=== PATIENT | female | born 1940 | race Caucasian/White ===

== ENCOUNTER 2021-10-12 21:55 | Inpatient (IN) | payer OTHER ==
[~2021-10-12] VITALS: Ht 162.6 cm; Wt 75.3 kg
--- NOTE | 2021-10-13 00:30 | NUR ---
ADMISSION NOTES PT ARRIVED AT APPROXIMATELY MIDNIGHT ACCOMPANIED BY 2 kennel hand. AOx2. ON 2 LPM VIA NC AND TOLERATING WELL. NO SOB NOTED. NO S/SX OF RESPIRATORY DISTRESS NOTED. TELE MONITOR DETECTS RHYTHM. IV ACCESS IN PJ #20G. SAFETY PRECAUTIONS IN PLACE: BED IN LOWEST, LOCKED POSITION, SIDERAILS UPx2, AND BRAKES ON. TABLE AND CALL LIGHT WITHIN REACH. WILL CONTINUE TO MONITOR. Addendum: 10/13/21 at 0539 by ANANTH SEVILLA RN TELE MONITOR DETECTS SR WITH BBB AND RATE OF 98.
[2021-10-13 01:45] LABS: ABG BASE EXCESS 1.7 mmol/L; ABG OXYGEN SATURATION 96.6 % (92.0-98.5); ABG PCO2 45.7 mmHg (35.0-45.0); ABG PH 7.392 (7.350-7.450); ABG PO2 87.7 mmHg (75.0-100.0); COHb 1.6 % (0.5-1.5); MetHb 0.3 % (0.0-1.5); O2Hb 94.8 % (94.0-97.0); SITE, ABG Right Radial; VENT MODE, BG Nasal Cannula
[2021-10-13] MEDS ORDERED: ACETAMINOPHEN 650 MG/20.3 ML UDC PO PRN (02:00)
[2021-10-13] MEDS ORDERED: TRAMADOL HCL 50 MG TABLET PO PRN (02:00)
[2021-10-13] MEDS ORDERED: busPIRone 5 MG TABLET PO PRN (02:00)
[2021-10-13] MEDS ORDERED: GABAPENTIN 100 MG CAPSULE PO PRN (02:00)
[2021-10-13] MEDS ORDERED: MAGNESIUM HYDROXIDE 30 ML UDC PO PRN (02:00)
[2021-10-13] MEDS ORDERED: INSULIN REGULAR, HUMAN 100 UNIT/ML 3 ML VIAL SQ PRN (02:30)
[2021-10-13] MEDS ORDERED: ONDANSETRON HCL/PF 4 MG/2 ML VIAL IVP PRN (02:30)
[2021-10-13] MEDS: ENOXAPARIN SODIUM 40 MG/0.4 ML DISP.SYRIN SQ SCH ×2 (02:30→20:27)
[2021-10-13] MEDS ORDERED: DEXTROSE 50%-WATER 50 ML DISP.SYRIN IV PRN ×2 (02:30→11:00)
[2021-10-13] MEDS ORDERED: *INSULIN REGULAR(HUMULIN R)HUM 100 UNIT/ML VIAL SQ PRN (02:30)
[2021-10-13] MEDS ORDERED: Z GUARD REMEDY 4 OZ OINT TP PRN (02:30)
[2021-10-13] MEDS ORDERED: ACETAMINOPHEN 325 MG TABLET PO PRN (02:30)
--- NOTE | 2021-10-13 02:40 | NUR ---
RN NOTES ACCIDENTALLY DOCUMENTED MEDICATIONS UNDER ORDERS. CONTACTED [facility] SO THE ORDERS WOULD NOT BE VERIFIED. CLARIFIED AND TAKEN CARE CARE OF.
[2021-10-13 04:00] VITALS: BP 130/72
[2021-10-13] MEDS ORDERED: methylPREDNISolone SOD SUCC 125 MG/2ML VIAL IV SCH (05:00)
[2021-10-13] MEDS: BLOOD SUGAR DIAGNOSTIC 1 EACH STRIP IN SCH ×7 (06:43→22:00)
--- NOTE | 2021-10-13 06:56 | NUR ---
RN CLOSING NOTES PT IN BED, AWAKE. AOx2. ON 2 LPM VIA NC AND TOLERATING WELL. NO SOB NOTED. NO S/SX OF RESPIRATORY DISTRESS NOTED. TELE MONITOR DETECTS SINUS RHYTHM/ SINUS TACHYCARDIA WITH BBB AND RATE OF 90-100. IV ACCESS IN PJ #20G. ALL ORDERS CARRIED OUT. ALL NEEDS MET. PT KEPT CLEAN AND DRY. WOUND PICTURES TAKEN. SAFETY PRECAUTIONS IN PLACE: BED IN LOWEST, LOCKED POSITION, SIDERAILS UPx2, AND BRAKES ON. TABLE AND CALL LIGHT WITHIN REACH. WILL ENDORSE TO ONCOMING SHIFT FOR RENE.
[2021-10-13 06:57] LABS: CALCIUM, SERUM 9.3 mg/dL (8.5-10.1); CARBON DIOXIDE 32 mmol/L (21-32); CHLORIDE 103 mmol/L (98-107); CREATININE 0.6 mg/dL (0.6-1.3); GLUCOSE 143 mg/dL (74-106); MAGNESIUM 1.7 mg/dL (1.8-2.4); PHOSPHORUS 4.1 mg/dL (2.5-4.9); POTASSIUM 3.9 mmol/L (3.5-5.1); SODIUM SERUM 143 mmol/L (136-145); UREA NITROGEN, BLOOD 10 mg/dL (7-18)
--- NOTE | 2021-10-13 07:10 | NUR ---
MARINE STEAM FITTER HELPER OPENING NOTES PT IN BED, AWAKE. AOx2. ON 2 LPM VIA NC AND TOLERATING WELL. NO SOB NOTED. NO S/SX OF RESPIRATORY DISTRESS NOTED. NO S/S OF CARDIAC DISTRESS. IV ACCESS IN PJ #20G SL INTACT AND PATENT, NO S/S OF INFILTRATION. PATIENT HAS R SIDED WEAKNESS. SKIN: SCRATCHES ON L KNEE AND ABDOMEN, L ELBOW BRUISE, AND SACRAL REDNESS. TELE MONITOR DETECTS SINUS RHYTHM WITH BBB AND RATE OF 96. SAFETY PRECAUTIONS IN PLACE: BED IN LOWEST, LOCKED POSITION, SIDERAILS UPx2, AND BRAKES ON. TABLE AND CALL LIGHT WITHIN REACH.
[2021-10-13 07:18] LABS: ALANINE AMINOTRANSFERASE 45 U/L (12-78); ALBUMIN 2.2 g/dL (3.4-5.0); ALKALINE PHOSPHATASE 547 U/L (46-116); ASPARTATE AMINOTRANSFERASE 41 U/L (15-37); BILIRUBIN,TOTAL 3.1 mg/dL (0.2-1.0); TOTAL PROTEIN, SERUM 7.3 g/dL (6.4-8.2)
--- NOTE | 2021-10-13 07:23 | NUR ---
RN NOTES RECEIVED CALL FROM LAB FOR [facility] OF [address] MELENDEZ NOTIFIED AND ACKNOWLEDGED NO NEW ORDERS AT THIS TIME.
[2021-10-13 07:28] LABS: CHOLESTEROL 176 mg/dL (<200); HDL CHOLESTEROL 26 mg/dL (40-60); LDL 109 mg/dL (0-99); THYROID STIMULATING HORMONE 0.249 uIU/mL (0.358-3.74); TRIGLYCERIDES 171 mg/dL (30-150)
[2021-10-13] MEDS ORDERED: LIOTHYRONINE SODIUM (5 MCG/TA 5 MCG TABLET PO SCH (07:30)
[2021-10-13] MEDS ORDERED: LEVOTHYROXINE SODIUM 175 MCG TABLET PO SCH (07:30)
[2021-10-13] MEDS ORDERED: OMEPRAZOLE 20 MG CAPSULE.DR PO SCH (07:30)
[2021-10-13] MEDS: IPRATROPIUM NEB FS 0.5 MG/2.5 ML AMPUL.NEB NEB SCH ×4 (07:35→19:30)
[2021-10-13] MEDS ORDERED: ALBUTEROL FS 2.5 MG/3 ML VIAL.NEB NEB SCH (07:35)
[2021-10-13 07:41] LABS: BASOPHILS % (AUTO) 0.3 % (0.0-2.0); EOSINOPHILS % (AUTO) 0.8 % (0.0-6.0); HEMATOCRIT 43 % (33-45); HEMOGLOBIN 14.3 g/dL (11.5-14.8); LYMPHOCYTES # (AUTO) 1.7 K/uL (0.8-4.8); LYMPHOCYTES % (AUTO) 28.1 % (20.0-44.0); MEAN CORPUSCULAR HGB CONC 33 g/dl (31.0-36.0); MEAN CORPUSCULAR VOLUME 90 fL (82-100); MONOCYTES # (AUTO) 0.4 K/uL (0.1-1.30); MONOCYTES % (AUTO) 7.6 % (2.0-12.0); NEUTROPHILS # (AUTO) 3.7 K/uL (1.8-8.9); NEUTROPHILS % (AUTO) 63.2 % (43.0-81.0); PLATELET COUNT (AUTO) 184 K/uL (150-450); RED BLOOD CELL COUNT(AUTO) 4.79 MIL/uL (4.0-5.2); WHITE BLOOD COUNT (AUTO) 5.9 K/uL (4.3-11.0)
[2021-10-13] MEDS: PANTOPRAZOLE 40 MG TABLET.DR PO SCH (07:52)
[2021-10-13] MEDS ORDERED: LEVO137T24 PO (07:55)
[2021-10-13] MEDS ORDERED: MAGN400O6 PO (07:55)
[2021-10-13] MEDS ORDERED: QUET25TA PO (07:55)
[2021-10-13] MEDS ORDERED: LOSA50TA39 PO (07:55)
[2021-10-13] MEDS ORDERED: POTA10CA43 PO (07:55)
[2021-10-13] MEDS ORDERED: PARO10TA86 PO (07:55)
[2021-10-13] MEDS ORDERED: MULT-447 PO (07:55)
[2021-10-13] MEDS ORDERED: DOCU-141 PO (07:55)
[2021-10-13] MEDS ORDERED: TRAM50TA2 PO (07:55)
[2021-10-13] MEDS ORDERED: ATOR20TA PO (07:55)
[2021-10-13] MEDS ORDERED: PROP15DR OP (07:55)
[2021-10-13] MEDS ORDERED: BACL10TA PO (07:55)
[2021-10-13] MEDS ORDERED: BUSP10TA3 PO (07:55)
[2021-10-13] MEDS ORDERED: CALC-494 PO (07:55)
[2021-10-13] MEDS ORDERED: LACT30003 PO (07:55)
[2021-10-13] MEDS ORDERED: LIOT5TAB7 PO (07:55)
[2021-10-13] MEDS ORDERED: GABA-532 PO (07:55)
[2021-10-13] MEDS ORDERED: CHOL400T11 PO (07:55)
[2021-10-13] MEDS ORDERED: OMEP20CA15 PO (07:55)
[2021-10-13] MEDS ORDERED: PSYL0.4C2 PO (07:55)
[2021-10-13] MEDS ORDERED: METO50TA16 PO (07:55)
[2021-10-13] MEDS ORDERED: ACET325T53 PO (07:55)
[2021-10-13 08:00] VITALS: BP 155/75
[2021-10-13] MEDS: ASPIRIN 81 MG TAB.CHEW PO SCH (08:44)
[2021-10-13] MEDS ORDERED: ASPIRIN EC 81 MG TABLET.DR PO SCH (09:00)
[2021-10-13] MEDS ORDERED: METOPROLOL TARTRATE 50 MG TABLET PO SCH (09:00)
[2021-10-13] MEDS ORDERED: MULTIVITAMINS,THERAGRAN 1 UDTAB TABLET PO SCH (09:00)
[2021-10-13] MEDS ORDERED: POTASSIUM CHLORIDE 10 MEQ TABLET.SA PO SCH (09:00)
[2021-10-13] MEDS ORDERED: LOSARTAN POTASSIUM 50 MG TABLET PO SCH (09:00)
[2021-10-13] MEDS ORDERED: PSYLLIUM SEED 1 PKT PACKET PO SCH (09:00)
[2021-10-13] MEDS ORDERED: CALCIUM CARBONATE 500 MG TAB.CHEW PO SCH (09:00)
[2021-10-13] MEDS ORDERED: PAROXETINE HCL 20 MG TABLET PO SCH (09:00)
[2021-10-13] MEDS ORDERED: DOCUSATE SODIUM 100 MG CAPSULE PO SCH (09:00)
[2021-10-13] MEDS ORDERED: CHOLECALCIFEROL (VITAMIN D 3) 400 UNIT TABLET PO SCH (09:00)
[2021-10-13] MEDS ORDERED: Magnesium 1GM/D5W 100ML PREMIX PIGGYBACK IV ONE (11:00)
[2021-10-13] MEDS: Magnesium 1GM/D5W 100ML PREMIX 100 ML IV SCH ×2 (11:43→12:46)
[2021-10-13] MEDS: INSULIN REGULAR, HUMAN 100 UNIT/ML 3 ML VIAL SQ PRN ×3 (11:50→21:32)
[2021-10-13 12:00] VITALS: BP 123/70
[2021-10-13] MEDS: ALBUTEROL FS 2.5 MG/3 ML VIAL.NEB NEB SCH ×2 (14:53→19:30)
--- NOTE | 2021-10-13 15:41 | NUR ---
PATIENT CONTINUES TO REMOVE NASAL CANNULA, NURSE CONTINUES TO ENCOURAGES AND EDUCATE RISK AND BENEFITS OF NASAL CANNULA. WILL CONTINUE TO MONITOR.
[2021-10-13 16:00] VITALS: BP 113/60
[2021-10-13] MEDS: HYDROCORTISONE SOD SUCCINATE 100 MG/2 ML VIAL IV SCH (17:10)
--- NOTE | 2021-10-13 18:35 | NUR ---
WEB UI SOFTWARE ENGINEER CLOSING NOTES PATIENT IN BED, AWAKE. AOx2. HAS 2L OF O2 VIA NASAL CANNULA BUT PATIENT BEGAN TO REFUSE TO WEAR NC. RISK AND BENEFITS EXPLAINED, ENCOURAGED PATIENT TO WEAR. NO SOB NOTED. NO S/SX OF RESPIRATORY DISTRESS NOTED. NO S/S OF CARDIAC DISTRESS. IV ACCESS IN PJ #20G SL INTACT AND PATENT, NO S/S OF INFILTRATION. PATIENT HAS R SIDED WEAKNESS. SKIN: SCRATCHES ON L KNEE AND ABDOMEN, L ELBOW BRUISE, AND SACRAL REDNESS. TELE MONITOR DETECTS SINUS RHYTHM WITH BBB AND RATE OF 88. ALL PRESCRIBED MEDICATION ADMINISTERED. SAFETY PRECAUTIONS MAINTAINED: BED IN LOWEST, LOCKED POSITION, SIDERAILS UPx2, AND BRAKES ON. TABLE AND CALL LIGHT WITHIN REACH. WILL ENDORSE TO NEXT SHIFT ANY RENE.
--- NOTE | 2021-10-13 19:45 | NUR ---
received in bed alert ORX2 noted right sided weakness and the arm she can left but is stiff and the hand is in a tax economist fashion arm and hand swollen elevated on a pillow speech slurred but with close listening able to understand bed alarm on
[2021-10-13 20:22] VITALS: BP 150/84
[2021-10-13] MEDS ORDERED: BACLOFEN (10 MG) 10 MG TABLET PO SCH (22:00)
[2021-10-13] MEDS ORDERED: QUETIAPINE FUMARATE 25 MG TABLET PO SCH (22:00)
[2021-10-13] MEDS ORDERED: ATORVASTATIN 10 MG TABLET PO SCH (22:00)
[2021-10-14] VITALS (7 sets, daily range): BP systolic 124–162; BP diastolic 48–83
--- NOTE | 2021-10-14 04:39 | NUR ---
CLOSING NOTES: ALERT / ORIENTATED X1 THIS 12 HOURS SHE FOLLOWS SIMPLE DIRECTION SWALLOWS W/O PROBLEMS ASP PRECAUTIONS SKIN CLEAN AND CLEAR INTACT WITH ASSIST OF THE BOOK SOLICITOR TURNED AND REPOSITIONED THRU THE NIGHT INCONTINENT KEPT CLEAN BED ALARM ARM ELEVATED ON PILLOWS RIGHT ARM STIFF S/P OLD CVA CED FOOT DROP NOTED ROOM AIR SATS 97% COMFORTABLE
[2021-10-14] MEDS: BLOOD SUGAR DIAGNOSTIC 1 EACH STRIP IN SCH ×5 (06:09→21:48)
--- NOTE | 2021-10-14 07:00 | NUR ---
NETWORK SYSTEMS OPERATOR OPENING NOTES PATIENT LAYING IN BED, A/O X 1, TOLERATING WELL ON ROOM AIR WITH NO S/S RESPIRATORY DISTRESS. NO COMPLAINTS OF PAIN OR DISCOMFORT AT THIS TIME. R SL # 20 G CLEAN, INTACT, AND FLUSHING WELL. TELE MONITOR READING SR 66 WITH BBB. SAFETY MEASURES IN PLACE: BED IN LOWEST LOCKED POSITION, SIDE RAILS UP X 2, CALL LIGHT WITHIN REACH. WILL CONTINUE TO MONITOR.
[2021-10-14 07:12] LABS: BASOPHILS % (AUTO) 0.2 % (0.0-2.0); EOSINOPHILS % (AUTO) 0.1 % (0.0-6.0); HEMATOCRIT 40 % (33-45); HEMOGLOBIN 13.4 g/dL (11.5-14.8); LYMPHOCYTES # (AUTO) 1.3 K/uL (0.8-4.8); LYMPHOCYTES % (AUTO) 34.8 % (20.0-44.0); MEAN CORPUSCULAR HGB CONC 34 g/dl (31.0-36.0); MEAN CORPUSCULAR VOLUME 89 fL (82-100); MONOCYTES # (AUTO) 0.4 K/uL (0.1-1.30); MONOCYTES % (AUTO) 9.3 % (2.0-12.0); NEUTROPHILS # (AUTO) 2.1 K/uL (1.8-8.9); NEUTROPHILS % (AUTO) 55.6 % (43.0-81.0); PLATELET COUNT (AUTO) 199 K/uL (150-450); RED BLOOD CELL COUNT(AUTO) 4.48 MIL/uL (4.0-5.2); WHITE BLOOD COUNT (AUTO) 3.8 K/uL (4.3-11.0)
[2021-10-14 07:17] LABS: CREATININE 0.6 mg/dL (0.6-1.3); MAGNESIUM 2.4 mg/dL (1.8-2.4); POTASSIUM 4.4 mmol/L (3.5-5.1)
[2021-10-14] MEDS: ALBUTEROL FS 2.5 MG/3 ML VIAL.NEB NEB SCH ×4 (07:38→19:30)
[2021-10-14] MEDS: IPRATROPIUM NEB FS 0.5 MG/2.5 ML AMPUL.NEB NEB SCH ×4 (07:38→19:30)
[2021-10-14] MEDS: LEVOTHYROXINE SODIUM 100 MCG TABLET PO SCH (07:54)
[2021-10-14] MEDS: PANTOPRAZOLE 40 MG TABLET.DR PO SCH (07:55)
[2021-10-14] MEDS: ASPIRIN 81 MG TAB.CHEW PO SCH (09:03)
[2021-10-14] MEDS: HYDROCORTISONE SOD SUCCINATE 100 MG/2 ML VIAL IV SCH ×2 (09:03→10:30)
[2021-10-14] MEDS: INSULIN REGULAR, HUMAN 100 UNIT/ML 3 ML VIAL SQ PRN ×3 (12:09→21:53)
--- NOTE | 2021-10-14 19:30 | NUR ---
MARINE ENGINEERING TEACHER NOTES RECEIVED LAYING ON BED,A/O X2,FORGETFUL.BREATHING NON LABORED,O2 IN USED AT 2L/NC TO KEEP O2 SAT ABOVE 90%.WITH RIGHT UPPER SALINE INTACT AND PATENT,DVT PUMP IN USED FOR DVT PROPHYLAXIS,WITH RIGHT SIDED WEAKNESS,RIGHT ARM FLACCID,RIGHT LEG ABLE TO RAISE UP A LITTLE BIT.DENIES DISCOMFORTS AT THE MOMENT,CALL LIGHT IN REACH,NEEDS ANTICIPATED.
[2021-10-14] MEDS: ENOXAPARIN SODIUM 40 MG/0.4 ML DISP.SYRIN SQ SCH (20:45)
--- NOTE | 2021-10-14 22:00 | NUR ---
PERL PROGRAMMER NOTES ACCU-CHECK BLOOD SUGAR CHECK 164,COVERED WITH HUMULIN R 3 UNITS PER SLIDING SCALE.
[2021-10-15] VITALS: BP 168/88
--- NOTE | 2021-10-15 01:33 | NUR ---
FAMILY PRACTICE NURSE PRACTITIONER NOTES STILL AWAKE,BP ELEVATED AT 168/66,HAVING MILD HEADACHE.TYLENOL 650MG PO GIVEN ORDERED.REPOSITION TO COMFORT.
--- NOTE | 2021-10-15 05:30 | NUR ---
CHIEF CRNA NOTES ACCU-CHECK AWAKE,BLOOD SUGAR 163,COVERED WITH HUMULIN R 3 UNITS PER SLIDING SCALE.
[2021-10-15] MEDS: BLOOD SUGAR DIAGNOSTIC 1 EACH STRIP IN SCH ×4 (05:37→21:46)
[2021-10-15] MEDS: INSULIN REGULAR, HUMAN 100 UNIT/ML 3 ML VIAL SQ PRN ×3 (05:44→17:47)
[2021-10-15 06:14] LABS: BASOPHILS % (AUTO) 0.2 % (0.0-2.0); EOSINOPHILS % (AUTO) 0.2 % (0.0-6.0); HEMATOCRIT 40 % (33-45); HEMOGLOBIN 13.4 g/dL (11.5-14.8); LYMPHOCYTES # (AUTO) 1.1 K/uL (0.8-4.8); LYMPHOCYTES % (AUTO) 20.6 % (20.0-44.0); MEAN CORPUSCULAR HGB CONC 34 g/dl (31.0-36.0); MEAN CORPUSCULAR VOLUME 88 fL (82-100); MONOCYTES # (AUTO) 0.4 K/uL (0.1-1.30); MONOCYTES % (AUTO) 8.2 % (2.0-12.0); NEUTROPHILS # (AUTO) 3.7 K/uL (1.8-8.9); NEUTROPHILS % (AUTO) 70.8 % (43.0-81.0); PLATELET COUNT (AUTO) 220 K/uL (150-450); RED BLOOD CELL COUNT(AUTO) 4.49 MIL/uL (4.0-5.2); WHITE BLOOD COUNT (AUTO) 5.3 K/uL (4.3-11.0)
[2021-10-15 06:39] LABS: CALCIUM, SERUM 8.5 mg/dL (8.5-10.1); CREATININE 0.6 mg/dL (0.6-1.3)
[2021-10-15 06:48] LABS: POTASSIUM 3.1 mmol/L (3.5-5.1)
--- NOTE | 2021-10-15 06:52 | NUR ---
MS RN NOTES ON BED A/O X2,SLEPT WITH INTERVALS,SR WITH BBB ON TELE MONITOR 97,MORNING CARE RENDERED,LATEST BP 159/90 MANUALLY,WILL ENDORSE TO DAY NURSE FOR RENE.
--- NOTE | 2021-10-15 07:23 | NUR ---
INFORMATION TECHNOLOGY PROFESSOR OPENING NOTES RECEIVED PATIENT AWAKE IN BED, A/O X 1, ON O2 INHALATION VIA NASAL CANNULA AT 2L/MIN. NO S/S RESPIRATORY DISTRESS. NO PAIN NOTED. NO SOB NOTED. IV ACCESS RIGHT ARM # 20 INTACT, AND FLUSHING WELL. ON TELE MONITOR.ALL SAFETY MEASURES IN PLACE: BED IN LOWEST LOCKED POSITION, SIDE RAILS UP X 2, CALL LIGHT WITHIN REACH. WILL CONTINUE TO MONITOR.
[2021-10-15 08:00] VITALS: BP 179/66
[2021-10-15] MEDS: ALBUTEROL FS 2.5 MG/3 ML VIAL.NEB NEB SCH ×4 (08:00→20:31)
[2021-10-15] MEDS: IPRATROPIUM NEB FS 0.5 MG/2.5 ML AMPUL.NEB NEB SCH ×4 (08:00→20:31)
[2021-10-15] MEDS: PANTOPRAZOLE 40 MG TABLET.DR PO SCH (08:03)
[2021-10-15] MEDS: ASPIRIN 81 MG TAB.CHEW PO SCH (08:03)
[2021-10-15] MEDS: LEVOTHYROXINE SODIUM 100 MCG TABLET PO SCH (08:03)
[2021-10-15] MEDS: HYDROCORTISONE SOD SUCCINATE 100 MG/2 ML VIAL IV SCH (08:04)
[2021-10-15] MEDS ORDERED: POTASSIUM CHLORIDE 20 MEQ TAB.PRT.SR PO ONE (09:30)
[2021-10-15] MEDS ORDERED: TRAMADOL HCL 50 MG TABLET PO PRN (14:00)
[2021-10-15] MEDS: ATORVASTATIN 10 MG TABLET PO SCH (14:24)
[2021-10-15 16:00] VITALS: BP 157/70
[2021-10-15] MEDS ORDERED: PSYLLIUM SEED 1 PKT PACKET PO SCH (17:00)
[2021-10-15] MEDS: METOPROLOL TARTRATE 50 MG TABLET PO SCH (17:38)
[2021-10-15] MEDS: POLYVINYL ALCOHOL 15 ML BOTTLE EACHEYE SCH (17:38)
[2021-10-15] MEDS: LOSARTAN POTASSIUM 50 MG TABLET PO SCH (17:39)
[2021-10-15] MEDS ORDERED: LACTAID 1 TAB TABLET PO SCH (18:00)
--- NOTE | 2021-10-15 18:57 | NUR ---
BUTT WELDER CLOSING NOTES PATIENT AWAKE IN BED, A/O X 1, ON O2 INHALATION VIA NASAL CANNULA AT 2L/MIN. NO S/S RESPIRATORY DISTRESS. NO PAIN NOTED. NO SOB NOTED. IV ACCESS RIGHT ARM # 20 INTACT, AND FLUSHING WELL. ALL DUE MEDS GIVEN ORDERED. ALL SAFETY MEASURES IN PLACE: BED IN LOWEST LOCKED POSITION, SIDE RAILS UP X 2, CALL LIGHT WITHIN REACH. WILL ENDORSE FOR RENE..
--- NOTE | 2021-10-15 19:35 | NUR ---
MS RN OPENING NOTE RECEIVED PT AWAKE IN BED. A/O X 2. ON O2 2LPM VIA NC, SATURATING WELL. NO SOB OR S/S OF RESPIRATORY DISTRESS. BREATHING EVEN AND UNLABORED. IV ACCESS RIGHT ARM 20 GAUGE SL, INTACT AND PATENT. SAFETY PRECAUTIONS IN PLACE. BED IN LOWEST LOCKED POSITION, HOB ELEVATED, SIDE RAILS UP X3, AND CALL LIGHT AND TABLE WITHIN REACH. ALL NEEDS MET AT THIS TIME.
[2021-10-15 20:16] VITALS: BP 155/74
[2021-10-15] MEDS: ENOXAPARIN SODIUM 40 MG/0.4 ML DISP.SYRIN SQ SCH (21:15)
[2021-10-15] MEDS ORDERED: QUETIAPINE FUMARATE 25 MG TABLET PO SCH (22:00)
[2021-10-15 22:47] LABS: BILIRUBIN,URINE NEGATIVE (NEGATIVE); COLOR,URINE YELLOW (YELLOW); LEUKOCYTE ESTERASE ,URINE TRACE (NEGATIVE); NITRITE, URINE POSITIVE (NEGATIVE); PH,URINE 6.5 (5.0-8.0); PROTEIN,URINE NEGATIVE (NEGATIVE); UGLUCOSE NEGATIVE (NEGATIVE); UROBILINOGEN,URINE 0.2 EU/dL (0.2)
[2021-10-16 00:04] LABS: BACTERIA,URINE Few /HPF (None Seen); RBC,URINE 0-2 /HPF (0-2); SQUAMOUS EPITHELIAL CELL,UR Few /HPF (None Seen)
[2021-10-16 06:21] LABS: CALCIUM, SERUM 8.8 mg/dL (8.5-10.1); CARBON DIOXIDE 30 mmol/L (21-32); CHLORIDE 103 mmol/L (98-107); CREATININE 0.6 mg/dL (0.6-1.3); GLUCOSE 123 mg/dL (74-106); POTASSIUM 3.7 mmol/L (3.5-5.1); SODIUM SERUM 136 mmol/L (136-145); UREA NITROGEN, BLOOD 7 mg/dL (7-18)
[2021-10-16] MEDS: BLOOD SUGAR DIAGNOSTIC 1 EACH STRIP IN SCH ×3 (06:40→17:10)
[2021-10-16 06:53] LABS: BASOPHILS % (AUTO) 0.4 % (0.0-2.0); EOSINOPHILS % (AUTO) 0.7 % (0.0-6.0); HEMATOCRIT 40 % (33-45); HEMOGLOBIN 13.4 g/dL (11.5-14.8); LYMPHOCYTES # (AUTO) 1.4 K/uL (0.8-4.8); LYMPHOCYTES % (AUTO) 34.8 % (20.0-44.0); MEAN CORPUSCULAR HGB CONC 33 g/dl (31.0-36.0); MEAN CORPUSCULAR VOLUME 89 fL (82-100); MONOCYTES # (AUTO) 0.4 K/uL (0.1-1.30); MONOCYTES % (AUTO) 10.9 % (2.0-12.0); NEUTROPHILS # (AUTO) 2.2 K/uL (1.8-8.9); NEUTROPHILS % (AUTO) 53.2 % (43.0-81.0); PLATELET COUNT (AUTO) 186 K/uL (150-450); RED BLOOD CELL COUNT(AUTO) 4.53 MIL/uL (4.0-5.2); WHITE BLOOD COUNT (AUTO) 4.1 K/uL (4.3-11.0)
--- NOTE | 2021-10-16 07:30 | NUR ---
MS RN OPENING NOTES: RECEIVED PT AWAKE IN BED. A/O X 2 WITH EPISODES OF FORGETFULNESS. NO SOB OR CARDIAC DISTRESS NOTED, ON O2 2LPM VIA NC, SATURATING WELL. IV ACCESS RIGHT ARM 20 GAUGE SL, INTACT AND PATENT. SAFETY PRECAUTIONS MAINTAINED. BED IN LOWEST LOCKED POSITION, HOB ELEVATED, SIDE RAILS UP X3, AND CALL LIGHT AND TABLE WITHIN REACH. KEPT RESTED AND COMFORTABLE.
[2021-10-16] MEDS: IPRATROPIUM NEB FS 0.5 MG/2.5 ML AMPUL.NEB NEB SCH ×4 (07:42→19:30)
[2021-10-16] MEDS: ALBUTEROL FS 2.5 MG/3 ML VIAL.NEB NEB SCH ×4 (07:42→19:30)
--- NOTE | 2021-10-16 07:54 | NUR ---
MS RN CLOSING NOTE PT AWAKE IN BED. A/O X 2. ON O2 2LPM VIA NC, SATURATING WELL. NO SOB OR S/S OF RESPIRATORY DISTRESS. BREATHING EVEN AND UNLABORED. IV ACCESS RIGHT ARM 20 GAUGE SL, INTACT AND PATENT. SAFETY PRECAUTIONS IN PLACE. BED IN LOWEST LOCKED POSITION, HOB ELEVATED, SIDE RAILS UP X3, AND CALL LIGHT AND TABLE WITHIN REACH. ALL NEEDS MET AT THIS TIME AND WILL ENDORSE TO ONCOMING NURSE FOR RENE.
[2021-10-16 08:00] VITALS: BP 153/88
[2021-10-16] MEDS ORDERED: LACTAID 1 TAB TABLET PO SCH (08:00)
[2021-10-16] MEDS: PANTOPRAZOLE 40 MG TABLET.DR PO SCH (08:52)
[2021-10-16] MEDS: LEVOTHYROXINE SODIUM 100 MCG TABLET PO SCH (08:52)
[2021-10-16] MEDS ORDERED: busPIRone HCL 10 MG TABLET PO SCH (09:00)
[2021-10-16] MEDS ORDERED: DOCUSATE SODIUM 100 MG CAPSULE PO SCH (09:00)
[2021-10-16] MEDS ORDERED: HYDROCORTISONE SOD SUCCINATE 100 MG/2 ML VIAL IV SCH (09:00)
[2021-10-16] MEDS ORDERED: PAROXETINE HCL 10 MG TABLET PO SCH (09:00)
[2021-10-16] MEDS ORDERED: MULTIVIT W/MINERALS 1 TAB TABLET PO SCH (09:00)
[2021-10-16] MEDS ORDERED: CHOLECALCIFEROL (VITAMIN D 3) 400 UNIT TABLET PO SCH (09:00)
[2021-10-16] MEDS ORDERED: CALCIUM CARBONATE 500 MG TAB.CHEW PO SCH (09:00)
[2021-10-16] MEDS: METOPROLOL TARTRATE 50 MG TABLET PO SCH ×2 (09:23→17:08)
[2021-10-16] MEDS: ATORVASTATIN 10 MG TABLET PO SCH (09:24)
[2021-10-16] MEDS: ASPIRIN 81 MG TAB.CHEW PO SCH (09:24)
[2021-10-16] MEDS: LOSARTAN POTASSIUM 50 MG TABLET PO SCH ×2 (09:24→17:09)
[2021-10-16] MEDS: POLYVINYL ALCOHOL 15 ML BOTTLE EACHEYE SCH ×2 (09:45→17:57)
[2021-10-16] MEDS ORDERED: busPIRone 5 MG TABLET PO SCH (10:10)
[2021-10-16] MEDS: INSULIN REGULAR, HUMAN 100 UNIT/ML 3 ML VIAL SQ PRN ×2 (12:19→17:57)
[2021-10-16] MEDS ORDERED: hydrALAZINE HCL IV 20 MG VIAL IV ONE (15:30)
--- NOTE | 2021-10-16 15:53 | NUR ---
RN NOTES: PATIENT UNABLE TO BE DC AT THIS TIME DUE TO ELEVATED BP. MD MADE AWARE AND ORDERED CLONIDINE 0.1MG SL ONE TIME ONLY. BP 166/78 MMHG.
[2021-10-16 16:00] VITALS: BP 154/71
[2021-10-16] MEDS ORDERED: CLONIDINE HCL 0.1 MG TABLET PO ONE (16:00)
[2021-10-16 17:09] VITALS: BP 154/71
--- NOTE | 2021-10-16 19:30 | NUR ---
MS RN CLOSING NOTES: PATIENT AWAKE IN BED. A/O X 2 WITH EPISODES OF FORGETFULNESS. NO SOB OR CARDIAC DISTRESS NOTED, ON O2 2LPM VIA NC, SATURATING WELL. REMOVED IV ACCESS. SAFETY PRECAUTIONS MAINTAINED. BED IN LOWEST LOCKED POSITION, HOB ELEVATED, SIDE RAILS UP X3, AND CALL LIGHT AND TABLE WITHIN REACH. KEPT RESTED AND COMFORTABLE.FOR DC ENDORSED TO SMALL OFFSET PRINTER FOR RENE.
--- NOTE | 2021-10-16 19:31 | NUR ---
MS RN OPENING NOTE RECEIVED PT AWAKE IN BED. A/O X 2. ON O2 1LPM VIA NC, SATURATING WELL. NO SOB OR S/S OF RESPIRATORY DISTRESS. BREATHING EVEN AND UNLABORED. IV ACCESS RIGHT ARM 20 GAUGE SL, INTACT AND PATENT. SAFETY PRECAUTIONS IN PLACE. BED IN LOWEST LOCKED POSITION, HOB ELEVATED, SIDE RAILS UP X3, AND CALL LIGHT AND TABLE WITHIN REACH. ALL NEEDS MET AT THIS TIME. AWAITING TRANSPORTATION FOR DISCHARGE TO [facility].
--- NOTE | 2021-10-16 19:58 | NUR ---
MS AUTOMOTIVE TITLE CLERK NOTE PT DISCHARGED TO [facility]. PT IS MEDICALLY STABLE AND CLEARED BY TYLER MELENDEZ FOR DISCHARGE. ALL PT CARE, NEEDS, MEDICATION, AND TREATMENT ADMINISTERED ANTICIPATED PER ORDER. DISCHARGE INSTRUCTIONS PROVIDED TO DRIVERS LICENSE EXAMINER. REPORT GIVEN TO JEAN-CLAUDE [facility] FROM [facility]. PT GOING TO ROOM 320-A. PT KEPT CLEAN AND DRY. IV ACCESS REMOVED, PRESSURE APPLIED, AND SECURED WITH GAUZE AND TAPE. NO SIGNS OF BLEEDING NOTED. PT TRANSPORTED TO [facility] WITH 2 DRIVERS LICENSE EXAMINER. TYLER MELENDEZ AND CHARGE NURSE CARLOS MANUEL NICHOLS.
== END 2021-10-16 20:00 | DRG 189 ==
LOC: TELE 10-13 → MED 10-15 12:56
PROVIDERS: ADMIT Nurse Practitioner Acute Care; ATTEND Nurse Practitioner Acute Care
DX: J96.21 Acute and chronic respiratory failure with hypoxia (principal); I21.A1 Myocardial infarction type 2; D68.59 Other primary thrombophilia; E87.1 Hypo-osmolality and hyponatremia; I69.351 Hemiplegia and hemiparesis following cerebral infarction affecting right dominant side; G93.40 Encephalopathy, unspecified; J44.1 Chronic obstructive pulmonary disease with (acute) exacerbation; E66.2 Morbid (severe) obesity with alveolar hypoventilation; J96.22 Acute and chronic respiratory failure with hypercapnia; F03.90 Unspecified dementia, unspecified severity, without behavioral disturbance, psychotic disturbance, mood disturbance, and anxiety; I10 Essential (primary) hypertension; E87.6 Hypokalemia; Z20.822 Contact with and (suspected) exposure to COVID-19; E78.5 Hyperlipidemia, unspecified; I25.2 Old myocardial infarction; E11.9 Type 2 diabetes mellitus without complications; F32.9 Major depressive disorder, single episode, unspecified; F41.1 Generalized anxiety disorder; E03.9 Hypothyroidism, unspecified; K21.9 Gastro-esophageal reflux disease without esophagitis; Z74.09 Other reduced mobility; Z68.28 Body mass index [BMI] 28.0-28.9, adult; Z87.891 Personal history of nicotine dependence; Z99.81 Dependence on supplemental oxygen; Z91.011 Allergy to milk products; Z88.8 Allergy status to other drugs, medicaments and biological substances; Z88.5 Allergy status to narcotic agent; Z91.013 Allergy to seafood
CPT/HCPCS: 36415; 36600; 71045-TC; 80048-TC; 80053-TC; 80061-TC; 81001; 82803-TC; 82962-TC; 83735-TC; 84100-TC; 84439-TC; 84443-TC; 84484-TC; 85025-TC; 87081-TC; 87086-TC; 87186-TC; 93307-TC; 94799-TC; 97110-TC; 97112-TC; 97530-TC; 97535-TC; G0378; J0360; J1650; J1720; J1815; J2930; J3475; J7040; J7120